=== PATIENT | female | born 1995 | race African-American/Black ===

== ENCOUNTER 2021-07-13 16:34 | Emergency (ER) | payer OTHER, SELFPAY ==
[2021-07-13 16:48] VITALS: BP 128/73; PULSE 73; RESP 16; TEMP 36.2; O2SAT 100
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
== END 2021-07-13 17:24 | disposition home or self-care (01) ==
PROVIDERS: Emergency Provider Nurse Practitioner
DX: T25.232A Burn of second degree of left toe(s) (nail), initial encounter (principal); X11.8XXA Contact with other hot tap-water, initial encounter
CPT/HCPCS: 99212; G0463